=== PATIENT | male | born 1970 | race Caucasian/White ===

== ENCOUNTER 2019-06-29 21:15 | Inpatient (IN) | payer MEDICAID ==
[~2019-06-29] VITALS: Ht 170.2 cm; Wt 86.2 kg
[2019-06-29] MEDS ORDERED: SODIUM CHLORIDE 0.9% 1,000 ML IV ONE (21:35)
[2019-06-29] MEDS ORDERED: ASPIRIN 81MG TABLET PO ONE (21:45)
[2019-06-29] MEDS ORDERED: LORAZEPAM 2MG/ML CPJ IV ONE (21:45)
[2019-06-30 00:20] LABS: HEMATOCRIT. 39.7 % (42.0-52.0); HEMOGLOBIN. 13.1 g/dL (14.0-18.0); MEAN CORPUSCULAR HEMOGLOBIN 29.5 pg (28.0-32.0); MEAN CORPUSCULAR VOLUME 89.2 fL (80.0-94.0); MEAN PLATELET VOLUME 9.8 fl (7.4-10.4); PLATELET 187 x1000/uL (130-400); RED BLOOD CELL COUNT 4.45 mill/uL (4.7-6.1); RED CELL DISTRIBUTION WIDTH 14.1 % (11.6-14.6)
[2019-06-30 00:23] LABS: CHLORIDE 113 mEq/L (98-107)
[2019-06-30 00:28] LABS: ETHANOL BLOOD < 10 mg/dL
[2019-06-30 00:34] LABS: CREATINE KINASE 26 IU/L (39-308)
[2019-06-30] MEDS ORDERED: SODIUM CHLORIDE 0.9% 1,000 ML IV ONE (00:45)
[2019-06-30 00:59] LABS: CLARITY URINE CLEAR (CLEAR); COLOR URINE YELLOW (YELLOW); KETONES URINE NEGATIVE (NEGATIVE); LEUKOCYTE ESTERASE URINE NEGATIVE (NEGATIVE); NITRITE URINE NEGATIVE (NEGATIVE); OCCULT BLOOD URINE NEGATIVE (NEGATIVE); PROTEIN URINE NEGATIVE (NEGATIVE); SPECIFIC GRAVITY URINE 1.019 (1.005-1.030); UROBILINOGEN URINE 0.2 E.U./dL (0.2-1.0)
[2019-06-30 01:09] LABS: METHADONE URINE SCREEN NEGATIVE (NEGATIVE); OPIATES URINE SCREEN NEGATIVE (NEGATIVE)
[2019-06-30 01:10] LABS: *AMPHETAMINES SCREEN URINE NEGATIVE (NEGATIVE); *BARBITURATES SCREEN URINE NEGATIVE (NEGATIVE); *BENZODIAZEPINES SCREEN URINE NEGATIVE (NEGATIVE); *COCAINE SCREEN URINE NEGATIVE (NEGATIVE); CANNABINOID URINE SCREEN NEGATIVE (NEGATIVE); PHENCYCLIDINE URINE SCREEN NEGATIVE (NEGATIVE)
[2019-06-30 01:57] LABS: PLATELET ESTIMATE NORMAL
[2019-06-30] MEDS ORDERED: ONDANSETRON HCL 4MG/2ML INJ IV PRN (09:45)
[2019-06-30] MEDS: ENOXAPARIN 40MG/0.4ML SYR SUBCUT SCH (10:38)
[2019-06-30] MEDS: ACETAMINOPHEN 325MG TABLET PO PRN (10:39)
[2019-06-30] MEDS: SODIUM CHLORIDE 0.9% 1,000 ML IV SCH ×2 (10:41→17:55)
[2019-06-30] MEDS ORDERED: BUPR1TAB40 SL (10:51)
[2019-06-30 11:08] VITALS: BP 121/79
[2019-06-30 11:26] VITALS: BP 119/77
[2019-06-30 15:33] VITALS: BP 132/79
[2019-06-30] MEDS: NICOTINE 21MG PATCH TD SCH (17:55)
[2019-06-30 20:00] VITALS: BP 125/76
[2019-06-30] MEDS ORDERED: CEFTRIAXONE 1 G PREMIX 50 ML IV SCH (23:00)
[2019-07-01] VITALS: BP 120/70
[2019-07-01] MEDS ORDERED: AZITHROMYCIN 500 MG in DEXT 5% WATER 250 ML IV SCH ×2
[2019-07-01 04:00] VITALS: BP 114/65
[2019-07-01] MEDS: SODIUM CHLORIDE 0.9% 1,000 ML IV SCH ×2 (05:42→09:37)
[2019-07-01] MEDS: ACETAMINOPHEN 325MG TABLET PO PRN (05:49)
[2019-07-01 06:47] LABS: BASOPHILS % 0.7 % (0.0-2.0); CHLORIDE 112 mEq/L (98-107); EOSINOPHILS % 0.3 % (0.0-5.0); HEMATOCRIT. 30.2 % (42.0-52.0); HEMOGLOBIN. 10.1 g/dL (14.0-18.0); LYMPHOCYTES % 15.9 % (20.0-50.0); MEAN CORPUSCULAR HEMOGLOBIN 29.7 pg (28.0-32.0); MEAN CORPUSCULAR VOLUME 88.8 fL (80.0-94.0); MONOCYTES % 6.9 % (2.0-8.0); NEUTROPHILS % 76.2 % (40.0-76.0); PLATELET 169 x1000/uL (130-400); RED CELL DISTRIBUTION WIDTH 14.4 % (11.6-14.6)
[2019-07-01 08:17] VITALS: BP 97/59
[2019-07-01] MEDS ORDERED: ASPIRIN 81MG TABLET PO SCH ×2 (09:00)
[2019-07-01] MEDS: ENOXAPARIN 40MG/0.4ML SYR SUBCUT SCH (09:37)
[2019-07-01] MEDS: NICOTINE 21MG PATCH TD SCH (09:37)
[2019-07-01 12:58] VITALS: BP 100/57
[2019-07-01 13:19] VITALS: BP 100/57
== END 2019-07-01 15:45 | disposition home or self-care (01) | DRG 203 ==
LOC: ER 21:15 → 6WST 06-30 01:04 → ENRESERV 06-30 07:48
PROVIDERS: ADMIT Internal Medicine Nephrology; ATTEND Internal Medicine Nephrology
DX: M94.0 Chondrocostal junction syndrome [Tietze] (principal); E87.8 Other disorders of electrolyte and fluid balance, not elsewhere classified; D72.829 Elevated white blood cell count, unspecified; R00.0 Tachycardia, unspecified; F17.210 Nicotine dependence, cigarettes, uncomplicated; E86.0 Dehydration; Z79.899 Other long term (current) drug therapy; Z71.6 Tobacco abuse counseling; Z71.51 Drug abuse counseling and surveillance of drug abuser
CPT/HCPCS: 36415; 71045; 80048; 80061; 80305; 80320; 81003; 82550; 84145; 84443; 84484; 93005; 93306; 99291; J0456; J0696; J1650; J2060; J2405; J7030; J7060; G0480